=== PATIENT | female | born 1980 | race Caucasian/White ===

== ENCOUNTER 2016-11-17 18:28 | Emergency (ER) | payer OTHER ==
[2016-11-17 18:34] VITALS: TEMP 98.8
[2016-11-17] MEDS ORDERED: SODIUM CHLORIDE 0.9% 1,000 ML IV ONE (19:35)
[2016-11-17 19:47] LABS: Appearance,Urine Clear (Clear); Bilirubin,Urine Negative (Negative); Glucose,Urine (UA) Negative (Negative); Ketones,Urine Negative (Negative); Leukocyte Esterase,Urine Negative (Negative); Mucus,Urine Occasional /hpf; Nitrite,Urine Negative (Negative); Particle Count 3051; Protein,Urine Trace (Negative); RBC,Urine >182 /hpf (0-5); Specific Gravity,Urine 1.019 (1.001-1.035); Squamous Epithelial Cell,Urine 1 /hpf (0-4); UA Billing (MACRO vs. MICRO) MICRO; WBC,Urine 1 /hpf (0-5)
--- NOTE | 2016-11-17 19:47 | ED ---
Abdominal Pain HPI - General Chief Complaint: Abdominal Pain Stated Complaint: abd pain, Time Seen by Provider: 11/17/16 19:02 Source: patient, RN notes reviewed Mode of arrival: ambulatory Limitations: no limitations - History of Present Illness Initial Comments: Patient is a 36-year-old female presents emergency room for evaluation of lower abdominal pain and diarrhea 8 days. Patient states she's been having yellow/ light-colored stool with mucus for the past 8 days. Patient states having worsening right lower quadrant left lower quadrant abdominal pain. Patient states she went to urgent care clinic earlier today and was advised to come to the emergency room to be further evaluated. Patient states she has history of 2 sections. Patient denies any other abdominal history. Patient denies history of ulcerative colitis, Crohn's disease or diverticulitis. Patient denies any pain or burning during urination, trouble urinating or blood in urine. Patient denies fevers. Patient states and having on-and-off hot flashes and cold chills. Patient denies chest pain shortness of breath. Patient denies nausea or vomiting. - Related Data Home Medications Medication Instructions Recorded Confirmed Ibuprofen [Motrin] 200 mg PO Q6HR PRN 11/17/16 11/17/16 Previous Rx's Medication Instructions Recorded Ondansetron Odt [Zofran Odt] 4 mg PO Q8HR PRN #12 tab 11/17/16 Allergies Allergy/AdvReac Type Severity Reaction Status Date / Time chlorpheniramine Allergy Anaphylaxis Verified 11/17/16 19:03 [From Triaminic Cold and Cough] dextromethorphan Allergy Anaphylaxis Verified 11/17/16 19:03 [From Triaminic Cold and Cough] diphenhydramine Allergy Unknown Verified 11/17/16 19:03 [From Triaminic Allergy] peach Allergy Anaphylaxis Verified 11/17/16 19:03 pseudoephedrine Allergy Anaphylaxis Verified 11/17/16 19:03 [From Triaminic Cold and Cough] Review of Systems ROS Statement: Those systems with pertinent positive or pertinent negative responses have been documented in the HPI. ROS Other: All systems not noted in ROS Statement are negative. Past Medical History Past Medical History: No Reported History History of Any Multi-Drug Resistant Organisms: None Reported Past Surgical History: Section Past Psychological History: No Psychological Hx Reported Smoking Status: Former smoker Past Alcohol Use History: None Reported Past Drug Use History: None Reported General Exam - General Exam Comments Initial Comments: Sitting in exam room, no acute distress. Limitations: no limitations General appearance: alert, in no apparent distress Head exam: Present: atraumatic, normocephalic, normal inspection Eye exam: Present: normal appearance ENT exam: Present: normal exam Neck exam: Present: normal inspection Respiratory exam: Present: normal lung sounds bilaterally. Absent: respiratory distress Cardiovascular Exam: Present: regular rate, normal rhythm, normal heart sounds GI/Abdominal exam: Present: soft, tenderness (Right lower quadrant and left lower quadrant), normal bowel sounds. Absent: distended, guarding, rebound, rigid Extremities exam: Present: normal inspection Back exam: Present: normal inspection Neurological exam: Present: alert, oriented X3, CN II-XII intact, normal gait Psychiatric exam: Present: normal affect, normal mood Skin exam: Present: warm, dry, intact, normal color. Absent: rash Course Vital Signs 11/17/16 11/17/16 11/17/16 18:32 21:28 22:33 Temperature 98.8 F Pulse Rate 97 96 83 Respiratory 20 16 16 Rate Blood Pressure 138/92 139/88 136/98 O2 Sat by Pulse 99 98 Oximetry Medical Decision Making - Medical Decision Making Patient is a 36-year-old female presents emergency room for evaluation of abdominal pain and diarrhea 8 days. Noted hematuria, patient is menstruating. Patient unable to provide stool sample while she was here. CT significant for 6 cm left ovarian cyst. Patient advised follow-up with [facility] regarding ovarian cyst. Patient states she is feeling better. Patient will be sent home with stool sample kit. Advised patient follow up with primary care provider. Return parameters discussed. Case discussed Dr. Vargas. - Lab Data Result diagrams: 11/17/16 20:20 11/17/16 20:20 Lab Results 11/17/16 11/17/16 11/17/16 Range/Units 19:30 19:30 20:20 WBC (3.8-10.6) k/uL RBC (3.80-5.40) m/uL Hgb (11.4-16.0) gm/dL Hct (34.0-46.0) % MCV (80.0-100.0) fL MCH (25.0-35.0) pg MCHC (31.0-37.0) g/dL RDW (11.5-15.5) % Plt Count (150-450) k/uL Neutrophils % % Lymphocytes % % Monocytes % % Eosinophils % % Basophils % % Neutrophils # (1.3-7.7) k/uL Lymphocytes # (1.0-4.8) k/uL Monocytes # (0-1.0) k/uL Eosinophils # (0-0.7) k/uL Basophils # (0-0.2) k/uL Sodium (137-145) mmol/L Potassium (3.5-5.1) mmol/L Chloride (98-107) mmol/L Carbon Dioxide (22-30) mmol/L Anion Gap mmol/L BUN (7-17) mg/dL Creatinine (0.52-1.04) mg/dL Est GFR (MDRD) Af Amer (>60 ml/min/1.73 sqM) Est GFR (MDRD) Non-Af (>60 ml/min/1.73 sqM) Glucose (74-99) mg/dL Calcium (8.4-10.2) mg/dL Magnesium (1.6-2.3) mg/dL Total Bilirubin (0.2-1.3) mg/dL AST (14-36) U/L ALT (9-52) U/L Alkaline Phosphatase (38-126) U/L Total Protein (6.3-8.2) g/dL Albumin (3.5-5.0) g/dL Amylase (30-110) U/L Lipase 132 (23-300) U/L Urine Color Yellow Urine Appearance Clear (Clear) Urine pH 7.0 (5.0-8.0) Ur Specific [place] 1.019 (1.001-1.035) Urine Protein Trace H (Negative) Urine Glucose (UA) Negative (Negative) Urine Ketones Negative (Negative) Urine Blood Moderate H (Negative) Urine Nitrite Negative (Negative) Urine Bilirubin Negative (Negative) Urine Urobilinogen 2.0 (<2.0) mg/dL Ur Leukocyte Esterase Negative (Negative) Urine RBC >182 H (0-5) /hpf Urine WBC 1 (0-5) /hpf Ur Squamous Epith Cells 1 (0-4) /hpf Urine Mucus Occasional H (None) /hpf Urine HCG, Qual Not Detected (Not Detectd) 11/17/16 11/17/16 Range/Units 20:20 20:20 WBC 10.6 (3.8-10.6) k/uL RBC 4.96 (3.80-5.40) m/uL Hgb 14.6 (11.4-16.0) gm/dL Hct 44.3 (34.0-46.0) % MCV 89.2 (80.0-100.0) fL MCH 29.4 (25.0-35.0) pg MCHC 33.0 (31.0-37.0) g/dL RDW 14.0 (11.5-15.5) % Plt Count 389 (150-450) k/uL Neutrophils % 63 % Lymphocytes % 27 % Monocytes % 5 % Eosinophils % 2 % Basophils % 1 % Neutrophils # 6.6 (1.3-7.7) k/uL Lymphocytes # 2.9 (1.0-4.8) k/uL Monocytes # 0.6 (0-1.0) k/uL Eosinophils # 0.2 (0-0.7) k/uL Basophils # 0.1 (0-0.2) k/uL Sodium 140 (137-145) mmol/L Potassium 4.0 (3.5-5.1) mmol/L Chloride 107 (98-107) mmol/L Carbon Dioxide 23 (22-30) mmol/L Anion Gap 10 mmol/L BUN 5 L (7-17) mg/dL Creatinine 0.53 (0.52-1.04) mg/dL Est GFR (MDRD) Af Amer >60 (>60 ml/min/1.73 sqM) Est GFR (MDRD) Non-Af >60 (>60 ml/min/1.73 sqM) Glucose 110 H (74-99) mg/dL Calcium 9.1 (8.4-10.2) mg/dL Magnesium 1.8 (1.6-2.3) mg/dL Total Bilirubin 0.4 (0.2-1.3) mg/dL AST 86 H (14-36) U/L ALT 126 H (9-52) U/L Alkaline Phosphatase 97 (38-126) U/L Total Protein 7.2 (6.3-8.2) g/dL Albumin 4.1 (3.5-5.0) g/dL Amylase <30 L (30-110) U/L Lipase (23-300) U/L Urine Color Urine Appearance (Clear) Urine pH (5.0-8.0) Ur Specific [place] (1.001-1.035) Urine Protein (Negative) Urine Glucose (UA) (Negative) Urine Ketones (Negative) Urine Blood (Negative) Urine Nitrite (Negative) Urine Bilirubin (Negative) Urine Urobilinogen (<2.0) mg/dL Ur Leukocyte Esterase (Negative) Urine RBC (0-5) /hpf Urine WBC (0-5) /hpf Ur Squamous Epith Cells (0-4) /hpf Urine Mucus (None) /hpf Urine HCG, Qual (Not Detectd) - Radiology Data Radiology results: report reviewed, image reviewed Disposition Clinical Impression: Left ovarian cyst, Diarrhea Disposition: HOME SELF-CARE Condition: Good Instructions: Ovarian Cyst (ED), Acute Diarrhea (ED) Additional Instructions: Please return stool sample in 2 days. Please follow-up with primary care provider in 24-48 hours for reevaluation. Please follow-up with [facility] for further evaluation of ovarian cyst. Take Tylenol or Motrin as needed for discomfort. If any new symptom arises ot symptoms worsen, return to ER as soon as possible. Prescriptions: Ondansetron Odt [Zofran Odt] 4 mg PO Q8HR PRN #12 tab PRN Reason: Nausea Referrals: Lorenzo Thomas MD [Primary Care Provider] - 1-2 days Mary Bravo DO [Doctor of Osteopathic Medicine] - 1-2 days Time of Disposition: 22:22
[2016-11-17 20:34] LABS: Basophils # (A) 0.1 k/uL (0-0.2); Basophils % (A) 1 %; CH 30.4; CHCM 34.3; Eosinophils # (A) 0.2 k/uL (0-0.7); Eosinophils % (A) 2 %; HCT 44.3 % (34.0-46.0); HDW 2.67; HGB 14.6 gm/dL (11.4-16.0); Luc # (Auto) 0.25; Luc % (Auto) 2; Lymphocytes # (A) 2.9 k/uL (1.0-4.8); Lymphocytes % (A) 27 %; MCH 29.4 pg (25.0-35.0); MCV 89.2 fL (80.0-100.0); Mean Platelet Volume 7.4; Monocytes # (A) 0.6 k/uL (0-1.0); Monocytes % (A) 5 %; Neutrophils # (A) 6.6 k/uL (1.3-7.7); Neutrophils % (A) 63 %; RBC 4.96 m/uL (3.80-5.40); WBC 10.6 k/uL (3.8-10.6); WBC (Perox) 10.61
[2016-11-17 20:44] LABS: ALT 126 U/L (9-52); AST 86 U/L (14-36); Alkaline Phosphatase 97 U/L (38-126); Amylase <30 U/L (30-110); Anion Gap 10 mmol/L; Blood Urea Nitrogen 5 mg/dL (7-17); Calcium 9.1 mg/dL (8.4-10.2); Carbon Dioxide 23 mmol/L (22-30); Chloride 107 mmol/L (98-107); Glucose 110 mg/dL (74-99); Magnesium 1.8 mg/dL (1.6-2.3); Non-African American GFR(MDRD) >60 (>60 ml/min/1.73 sqM); Sodium 140 mmol/L (137-145); Total Bilirubin 0.4 mg/dL (0.2-1.3); Total Protein 7.2 g/dL (6.3-8.2)
[2016-11-17] MEDS ORDERED: ONDANSETRON 4 MG/2 ML VIAL IVP STA (21:16)
[2016-11-17] MEDS ORDERED: RX INFO: IV CONTRAST WAS GIVEN 1 EACH MISC MISCELLANE PRN (21:17)
[2016-11-17 21:28] VITALS: RESP 16
--- NOTE | 2016-11-17 21:54 | CT ---
EXAMINATION TYPE: CT abdomen pelvis w con DATE OF EXAM: 11/17/2016 COMPARISON: NONE HISTORY: Lower abdominal pain worsening x8 days. CT DLP: 2424.5 mGycm Automated exposure control for dose reduction was used. TECHNIQUE: Helical acquisition of images was performed from the lung bases through the pelvis. CONTRAST: Performed without Oral Contrast and with IV Contrast, patient injected with 100 mL of Omnipaque 300. FINDINGS: : Lung bases are clear. There is no pleural effusion. There is decreased density in the liver consistent with fatty infiltration. Spleen appears normal. Th ere is no pancreatic mass. Gallbladder appears normal. There is no adrenal mass. Kidneys show satisfactory contrast opacification. There is no hydronephrosis. There is no retroperito patrick adenopathy. There is no ascites. Appendix appears normal. Bladder distends smoothly. There is a 6 cm cyst on the left ovary. I see no intestinal wall thickening. There are no dilated loops. The bony structures are intact. IMPRESSION: FATTY INFILTRATION OF THE LIVER. NO DILATED DUCTS. 6 CM LEFT OVARIAN CYST. NORMAL APPENDIX.
[2016-11-17 22:34] VITALS: BP 136/98; PULSE 83
== END 2016-11-17 22:33 | disposition home or self-care (01) ==
LOC: EC 18:28
DX: N83.202 Unspecified ovarian cyst, left side (principal); R19.7 Diarrhea, unspecified; Z87.891 Personal history of nicotine dependence; Z88.8 Allergy status to other drugs, medicaments and biological substances
CPT/HCPCS: 96361 ×3; 96374 ×2; 99284 ×2; 36415; 80053; 82150; 83690; 83735; 85025; 81001; 81025; 87086; 74177; J2405; Q9967

== ENCOUNTER → 2017-01-07 | Outpatient (CLI) | payer OTHER ==
--- NOTE | 2017-01-07 15:11 | NM ---
EXAMINATION TYPE: NM hepatobiliary w EF DATE OF EXAM: 01/07/2017 COMPARISON: CT abdomen pelvis 11/17/2016 HISTORY: Abdominal pain TECHNIQUE: After the intravenous administration of 6 mCi Tc 99m Mebrofenin hepatobiliary scintigraphy is performed. Immediate images post injection. FINDINGS: There is satisfactory initial accumulation of tracer by the liver. The gallbladder is visualized wit hin 10 minutes. The small bowel activity is noted within 54 minutes. At one hour 8 ounces of oral e nsure plus is given to mimic CCK and gallbladder ejection fraction is calculated at 87 %. Therefore there is no scintigraphic evidence of cystic or common bile duct obstruction to suggest acute cholecy stitis or gallbladder dyskinesia. IMPRESSION: Gallbladder ejection fraction is 87%,perhaps elevated
== END | disposition home or self-care (01) ==
LOC: RADNMMAIN 13:03
PROVIDERS: ATTEND Family Medicine
DX: R10.11 Right upper quadrant pain (principal)
CPT/HCPCS: 78226; A9537

== ENCOUNTER 2024-10-15 06:33 | Day surgery (SDC) | payer BC ==
[2024-10-11 16:05] VITALS: BMI 36.6
[~2024-10-15 06:33] MED LIST: LIDOCAINE 1% (10MG/ML) FOR IV START INTRADERMA PRN
[2024-10-15 07:21] LABS: Glucose,Whole Blood 95 mg/dL (70-110)
--- NOTE | 2024-10-15 07:30 | P.GSHP ---
History of Present Illness H&P Date: 10/15/24 CHIEF COMPLAINT: GERD and dysphagia HISTORY OF PRESENT ILLNESS: The patient is a 44-year-old female who presents reports gastroesophageal reflux disease and dysphagia. Upper endoscopy was offered for further evaluation and management. PAST MEDICAL HISTORY: Please see list. PAST SURGICAL HISTORY: Please see list. MEDICATIONS: Please see list. ALLERGIES: Please see list. SOCIAL HISTORY: No illicit drug use FAMILY HISTORY: No reports of Crohn disease or ulcerative colitis. REVIEW OF ORGAN SYSTEMS: CONSTITUTIONAL: No reports of fevers or chills. GI: Denies any blood in stools or constipation. PHYSICAL EXAM: VITAL SIGNS: Stable GENERAL: Well-developed and pleasant in no acute distress. HEENT: No scleral icterus. Extraocular movements grossly intact. Moist buccal mucosa. NECK: Supple without lymphadenopathy. CHEST: Unlabored respirations. Equal bilateral excursions. CARDIOVASCULAR: Regular rate and rhythm. Distal 2+ pulses. ABDOMEN: Soft, nondistended. MUSCULOSKELETAL: No clubbing, cyanosis, or edema. ASSESSMENT: 1. Gastroesophageal reflux disease 2. Dysphagia PLAN: 1. Recommend proceeding with an upper endoscopy Past Medical History Past Medical History: Asthma, Diabetes Mellitus, Fibromyalgia, GERD/Reflux, Musculoskeletal Disorder, Osteoarthritis (OA) Additional Past Medical History / Comment(s): PCOS, diet controlled diabetes, vision issues rt eye. intermittent sciatic pain, History of Any Multi-Drug Resistant Organisms: None Reported Past Surgical History: Bariatric Surgery, Section, Uterine Ablation Additional Past Surgical History / Comment(s): c-sectionx2, Uterine ablationx3, D&Cx2, COLONOSCOPY/EGD,last egd on 09-27-24. Gastric bypass 08-27-24 Past Anesthesia/Blood Transfusion Reactions: No Reported Reaction Smoking Status: Former smoker - Past Family History Mother Family Medical History: Cancer Additional Family Medical History / Comment(s): breast cax2 with mastectomy, lymphatic, uterine and cervical and melanoma, stroke, cerebral palsy Sister(s) Family Medical History: Diabetes Mellitus, Thyroid Disorder Father Additional Family Medical History / Comment(s): Polio as child-muscle disorder from Medications and Allergies Home Medications Medication Instructions Recorded Confirmed Type Omeprazole [PriLOSEC] 40 mg PO DAILY #30 cap 08/27/24 10/15/24 Rx ursodioL [Ursodiol] 300 mg PO BID 30 Days #60 capsule 08/27/24 10/15/24 Rx Bariatric Multivitamin 1 dose PO DAILY 10/11/24 10/15/24 History Calcium Citrate 1,000 mg PO DAILY 10/11/24 10/15/24 History Allergies Allergy/AdvReac Type Severity Reaction Status Date / Time bee venom protein (honey bee) Allergy Anaphylaxis Verified 10/15/24 07:29 diphenhydramine Allergy Rash/Hives Verified 10/15/24 07:29 [From Triaminic Allergy] peach Allergy Anaphylaxis Verified 10/15/24 07:29
[2024-10-15 07:40] VITALS: TEMP 97
[2024-10-15] MEDS: IV FLUID CONTINUATION 1,000 ML IV ONE (07:41)
[2024-10-15] MEDS: LACTATED RINGERS 1,000 ML IV SCH (07:41)
[2024-10-15] MEDS ORDERED: PROPOFOL 10 MG/ML 20 ML VIAL IV ONE (07:42)
[2024-10-15] MEDS ORDERED: LIDOCAINE 1% INJ 10MG/ML (20 ML MDV) ONE (07:42)
[2024-10-15 08:23] VITALS: RESP 16
--- NOTE | 2024-10-15 08:34 | P.PCN ---
Date of Procedure: 10/15/24 Description of Procedure: PREOPERATIVE DIAGNOSIS: Dysphagia Gastric stenosis POSTOPERATIVE DIAGNOSIS: Gastrojejunal stricture without chronic ulcer without perforation Gastric stenosis OPERATION: Esophagogastrojejunoscopy with pyloric balloon dilatation from 8 to 14 mm for gastric stricture SURGEON: Nimo Lehman MD ANESTHESIA: MAC. INDICATIONS: The patient is a 44-year-old female who presents with new dysphagia, including intractable nausea and vomiting. Benefits and risks of the procedure were described. Informed consent was obtained. DESCRIPTION: The patient was brought into the endoscopy suite and laid in the left lateral decubitus position. After a timeout was confirmed, the procedure was initiated. An Olympus gastroscope was passed along the posterior oropharynx down to the distal esophagus where the squamocolumnar junction was unremarkable. The gastric pouch was entered. A gastrojejunal stricture of 2 mm was found as the adult gastroscope was 9 mm in size. A Streaming Era pyloric balloon dilator was placed through the scope. The scope was reentered for balloon dilation of the gastrojejunal anastomosis of 8 mm. Final insufflation from 12 to 14 mm was performed with a total of 2 minutes. The scope was advanced up to 60 cm from the incisors into the Cathleen coughlin b. The mucosa of the gastrojejunal anastomosis was intact. No chronic gastrojejunal marginal ulcer was encountered. No full-thickness injury was encountered. The GI tract was desufflated. The patient tolerated the procedure well. FINDINGS: Squamocolumnar junction unremarkable at 37 cm. Stricture of approximately 8 mm encountered. No chronic gastrojejunal ulceration encountered. Successful balloon dilatation to 14 mm. Gastric pouch 4 cm RECOMMENDATIONS: Repeat upper endoscopy in 3- 4 weeks Plan - Discharge Summary Discharge Rx Participant: No New Discharge Prescriptions: New Omeprazole [PriLOSEC] 40 mg PO DAILY #90 cap Continue Omeprazole [PriLOSEC] 40 mg PO DAILY #30 cap ursodioL [Ursodiol] 300 mg PO BID 30 Days #60 capsule Discontinued Calcium Citrate 1,000 mg PO DAILY Bariatric Multivitamin 1 dose PO DAILY Discharge Medication List Omeprazole [PriLOSEC] 40 mg PO DAILY #30 cap 08/27/24 [Rx] ursodioL [Ursodiol] 300 mg PO BID 30 Days #60 capsule 08/27/24 [Rx] Omeprazole [PriLOSEC] 40 mg PO DAILY #90 cap 10/15/24 [Rx] [facility]Ref[place] [facility] [place] 10[place]31[facility]24 3:00 pm Patient Instructions/Handouts: Esophageal Dilation (DC) Activity/Diet/Wound Care/Special Instructions: Only use omeprazole and ursodiol. Discontinue other medications. Discharge Disposition: HOME SELF-CARE
[2024-10-15 08:53] VITALS: BP 101/66; PULSE 61
== END 2024-10-15 09:05 | disposition home or self-care (01) ==
LOC: ORWHC2ENDO 06:33 → MERGE 06:33 → ORWHC2ENDO 09:05
PROVIDERS: ATTEND Surgery Plastic and Reconstructive Surgery
DX: K31.89 Other diseases of stomach and duodenum (principal); K21.9 Gastro-esophageal reflux disease without esophagitis; J45.909 Unspecified asthma, uncomplicated; E11.9 Type 2 diabetes mellitus without complications; M79.7 Fibromyalgia; M19.90 Unspecified osteoarthritis, unspecified site; E28.2 Polycystic ovarian syndrome; Z98.84 Bariatric surgery status; Z98.890 Other specified postprocedural states; Z79.899 Other long term (current) drug therapy; Z91.030 Bee allergy status; Z88.8 Allergy status to other drugs, medicaments and biological substances; Z91.018 Allergy to other foods
CPT/HCPCS: 81025; 43245; J2003; J2704; C1726

== ENCOUNTER → 2024-10-31 | Outpatient (CLI) | payer BC ==
[2024-10-31 15:02] VITALS: BP 120/84; PULSE 69; RESP 16; TEMP 98.4; BMI 35.2
--- NOTE | 2024-10-31 15:51 | P.BASOAP ---
Subjective Progress Note Date: 10/31/24 She is losing more weight 11 pounds. Her stretch is better. She is avoiding sweetness. She can have salmon tanvir. She reports not feeling full. Protein 100 grams. She drinks fluids 55 oz or more. She used to weigh 135 pounds. Objective - Vital Signs Vital signs: Vital Signs Temp 98.4 F 10/31/24 15:00 Pulse 69 10/31/24 15:00 Resp 16 10/31/24 15:00 BP 120/84 10/31/24 15:00 Pulse Ox FiO2 Intake & Output 10/30/24 10/31/24 10/31/24 18:59 06:59 18:59 Weight 106.594 kg Assessment/Plan Plan: Date: 10/31/24 Initial Weight: 132.477 kg Initial BMI: 43.7 Current Weight: 106.594 kg Current BMI: 35.2 Type of Surgery: Vertical Sleeve Gastrectomy Total Volume in Band: Previous Volume: Volume Removed: Volume Added: Band Size:
== END ==
LOC: MERGE 14:29 → BARWHC3 14:29
PROVIDERS: ATTEND Surgery Plastic and Reconstructive Surgery
DX: E66.01 Morbid (severe) obesity due to excess calories (principal); Z68.35 Body mass index [BMI] 35.0-35.9, adult; Z91.030 Bee allergy status; Z91.018 Allergy to other foods
CPT/HCPCS: 99211